=== PATIENT | male | born 1955 | race Caucasian/White ===

== ENCOUNTER → 2021-01-29 | Outpatient (CLI) | payer OTHER ==
--- NOTE | 2021-01-29 13:14 | Diagnostic Imaging Report ---
CT ABDOMEN/PELVIS WO TECHNIQUE: Unenhanced CT imaging of the abdomen and pelvis was performed. 2-D reformats are created and submitted for interpretation. Automatic exposure controls were utilized to optimize patient dose. INDICATION: Urinary frequency COMPARISON: 02/05/2019 FINDINGS: Evaluation of the abdominal viscera is mildly limited without contrast. Lower chest: The lung bases are clear. No pericardial or pleural effusion. Peritoneum: No free intraperitoneal air or fluid. Liver and biliary system: Unenhanced liver is normal. Gallbladder is contracted without radiopaque gallstones. No biliary duct dilatation. Spleen and Pancreas: There are a few punctate calcified splenic granulomas, unchanged. Unenhanced pancreas is grossly normal. Adrenals: Unchanged 1.2 cm left adrenal adenoma. Right adrenal gland is normal. tract: No renal or ureteral calculi. No obstructive uropathy. Stable partially exophytic 1.3 cm cyst in the lower pole of the left kidney. Prostate is not enlarged. GI tract: Stomach is partially filled with fluid and there is no wall thickening. No bowel obstruction. No pericolonic inflammatory changes. Normal appendix. Vasculature and Lymph nodes: Normal caliber aorta. No abdominal or pelvic lymphadenopathy. Musculoskeletal: No concerning osseous lesion. IMPRESSION: 1. No urinary tract calculi or obstructive uropathy. Dictated by: Dictated on workstation # [id number]
== END ==
LOC: RAD FS 12:39
PROVIDERS: ATTEND Nurse Practitioner
DX: R35.0 Frequency of micturition (principal); M54.9 Dorsalgia, unspecified
CPT/HCPCS: 74176